=== PATIENT | male | born 1995 | race Caucasian/White ===

== ENCOUNTER 2023-06-20 12:49 | Inpatient (IN) | payer SELFPAY ==
[2023-06-20] MEDS: Acetaminophen/HYDROcodone 325-5 MG Tab PO ONE (13:35)
[2023-06-20] MEDS ORDERED: Naloxone 0.4 MG/ML SDV IVPUSH PRN (14:41)
[2023-06-20] MEDS: HYDROmorphone 1 MG/ML Syringe IVPUSH PRN (14:46)
[2023-06-20] MEDS: Sodium Chloride 0.9% 1,000 ML IV ONE (15:36)
[2023-06-20] MEDS ORDERED: Ondansetron 4 MG/2 ML SDV IV PRN (15:38)
[2023-06-20] MEDS ORDERED: Polyethylene Glycol 3350 Powder 17 GM Packet PO PRN (15:38)
[2023-06-20] MEDS ORDERED: Sodium Chloride 0.9% 10 ML Syringe FLUSH PRN (15:38)
[2023-06-20 15:52] LABS: MEAN CORPUSCULAR HEMOGLOBIN 30.2 pg (31.6-35.5); MEAN CORPUSCULAR HGB CONC 34.8 g/dL (31.6-35.5); MEAN CORPUSCULAR VOLUME 86.8 fL (81.4-99.0); RED BLOOD CELL COUNT 5.3 M/uL (4.14-5.76); WHITE BLOOD CELL COUNT,WBC 15.5 K/uL (3.2-11.0)
[2023-06-20 16:07] LABS: ANION GAP 13.9 mmol/L (5.0-14.0); CALCIUM 9.5 mg/dL (8.5-10.1); EST CRCL DRUG DOSING (CG) 117.13 mL/min; POTASSIUM,K 3.9 mmol/L (3.6-5.2)
[2023-06-20] MEDS: Acetaminophen 325 MG Tab PO PRN (19:55)
[2023-06-20] MEDS: oxyCODONE 5 MG Tab PO PRN (21:07)
[2023-06-20] MEDS: HYDROmorphone 0.5 MG/0.5 ML Syringe IVPUSH PRN (22:35)
[2023-06-20] MEDS: Sodium Chloride 0.9% 1,000 ML IV SCH (23:55)
[2023-06-21] MEDS ORDERED: Dexamethasone 4 MG/ML SDV ONE (08:21)
[2023-06-21] MEDS ORDERED: Glycopyrrolate 0.2 MG/ML 5 ML MDV ONE (08:21)
[2023-06-21] MEDS ORDERED: Succinylcholine 200 MG/10 ML MDV ONE (08:21)
[2023-06-21] MEDS ORDERED: Ondansetron 4 MG/2 ML SDV ONE (08:21)
[2023-06-21] MEDS ORDERED: Neostigmine Methylsulfate 10 MG/10 ML MDV ONE (08:21)
[2023-06-21] MEDS ORDERED: Propofol 200 MG/20 ML SDV ONE (08:21)
[2023-06-21] MEDS ORDERED: fentaNYL 250 MCG/5 ML SDV ONE ×2 (08:21→11:44)
[2023-06-21] MEDS: Allopurinol 100 MG Tab PO SCH (08:38)
[2023-06-21] MEDS ORDERED: Rocuronium 50 MG/5 ML Vial ONE (08:59)
[2023-06-21] MEDS ORDERED: Lactated Ringers 1,000 ML ONE (11:34)
[2023-06-21] MEDS: ceFAZolin 2 GM in Premix Bag 1 BAG IV ONE (12:10)
[2023-06-21] MEDS: Bupivacaine 0.5% 50 ML MDV ONE (12:15)
[2023-06-21] MEDS ORDERED: fentaNYL 100 MCG/2 ML SDV ONE (12:40)
== END 2023-06-21 16:45 | disposition home or self-care (01) | DRG 493 ==
LOC: JP.ED 12:49 → JP.MS 14:40
PROVIDERS: ADMIT Hospitalist; ATTEND Internal Medicine
PROC: 0QSJ04Z Reposition Right Fibula with Internal Fixation Device, Open Approach (ICD-10-PCS; principal; 2023-06-20)
PROC: 0QSG04Z Reposition Right Tibia with Internal Fixation Device, Open Approach (ICD-10-PCS; 2023-06-20)
DX: S82.841A Displaced bimalleolar fracture of right lower leg, initial encounter for closed fracture (principal); Z68.41 Body mass index [BMI] 40.0-44.9, adult; E66.01 Morbid (severe) obesity due to excess calories; Z98.890 Other specified postprocedural states; Y93.39 Activity, other involving climbing, rappelling and jumping off
CPT/HCPCS: 01480-QZ; 29515; 36415; 73610-26-RT; 73610-RT; 76000; 80048; 85027; 96374; 97161-GP; 99222; 99284-25; 99285; A9270-GY; C1713; C1776; J0330; J0665; J0690; J1100; J1170; J2405; J2704; J2710; J3010; J3490; J7030; J7120